=== PATIENT | male | born 1995 | race African-American/Black ===

== ENCOUNTER 2018-02-15 21:35 | Emergency (ER) | payer SELFPAY ==
[~2018-02-15] VITALS: Ht 190.5 cm; Wt 99.8 kg
[2018-02-15 21:41] VITALS: BP 150/103
--- NOTE | 2018-02-15 21:45 | NUR ---
SOB, COUGHING LIGHT PINK SPUTUM X 3 DAYS, FATIGUE, CHILLS, NAD NOTED, VSS, RESP EVEN AND UNLABORED, PT WAS PUT ON MONITOR, ANGELI CONKLIN AT BS.
[2018-02-15 22:35] LABS: BASOPHILS % (AUTO) 0.6 % (0.0-2.0); EOSINOPHILS % (AUTO) 0.9 % (0.0-6.0); HEMATOCRIT 46 % (39-51); HEMOGLOBIN 15.3 g/dL (13.5-17.5); LYMPHOCYTES # (AUTO) 2.7 /CMM (0.8-4.8); LYMPHOCYTES % (AUTO) 41.6 % (20.0-44.0); MEAN CORPUSCULAR HGB CONC 33 g/dl (31.0-36.0); MEAN CORPUSCULAR VOLUME 84 fL (80-96); MONOCYTES # (AUTO) 0.5 /CMM (0.1-1.30); MONOCYTES % (AUTO) 7.8 % (2.0-12.0); NEUTROPHILS # (AUTO) 3.2 /CMM (1.8-8.9); NEUTROPHILS % (AUTO) 49.1 % (43.0-81.0); PLATELET COUNT (AUTO) 225 /CMM (150-450); RDW COEFFICIENT OF VARIATION 14.7 (11.5-15.0); RED BLOOD CELL COUNT(AUTO) 5.52 MIL/uL (4.5-6.0); WHITE BLOOD COUNT (AUTO) 6.6 K/uL (4.3-11.0)
== END 2018-02-15 22:56 | disposition home or self-care (01) ==
LOC: ER 21:37
DX: J20.9 Acute bronchitis, unspecified (principal); Z88.8 Allergy status to other drugs, medicaments and biological substances; Z91.013 Allergy to seafood
CPT/HCPCS: 36415; 71046; 85025-TC; A4606; Z7610

== ENCOUNTER 2018-03-02 17:16 | Emergency (ER) | payer BC ==
[~2018-03-02] VITALS: Ht 182.9 cm; Wt 86.2 kg
[2018-03-02 17:30] VITALS: BP 130/91
--- NOTE | 2018-03-02 17:35 | NUR ---
PRESENTS TO ER STATING "WAS HERE 2 WEEKS AGO FOR BRONCHITIS AND STILL FEEL SOB; ALSO NEEDS TO BE CHECKED OUT FOR CHLAMYDIA- MY GIRL HAS IT AND WAS WITH HER 10 DAYS AGO." PATIENT IS A/OX 4, BREATHING EVEN AND UNLABORED AT THIS TIME. NO DISTRESS, VSS. SAFETY AND COMFORT MEASURES IN PLACE. AWAITING MD ORDERS.
[2018-03-02] MEDS ORDERED: AZITHROMYCIN 250 MG TABLET PO ONE (18:00)
[2018-03-02] MEDS ORDERED: CEFTRIAXONE 500 MG VIAL IM ONE (18:00)
[2018-03-02] MEDS ORDERED: AZITHROMYCIN 250 MG TABLET ONE (18:08)
[2018-03-02] MEDS ORDERED: LIDOCAINE /MPF 1% VIAL 5 ML VIAL ONE (18:09)
[2018-03-02] MEDS ORDERED: CEFTRIAXONE 500 MG VIAL ONE (18:09)
== END 2018-03-02 19:04 | disposition home or self-care (01) ==
LOC: ER 17:27
DX: R05 Cough (principal); Z20.2 Contact with and (suspected) exposure to infections with a predominantly sexual mode of transmission; Z91.013 Allergy to seafood; Z88.8 Allergy status to other drugs, medicaments and biological substances; Z98.890 Other specified postprocedural states
CPT/HCPCS: 96372; 99283; A4606; J0696; J3490; Z7610

== ENCOUNTER 2018-03-04 00:48 | Emergency (ER) | payer BC ==
[~2018-03-04] VITALS: Ht 182.9 cm; Wt 79.4 kg
--- NOTE | 2018-03-04 00:49 | NUR ---
PT A/OX4 C/C SYNCOPAL EPISODE OUTSIDE OF A [employer]. NEG ACUTE DISTRESS. VSS. STABLE CONDITION. SAFETY MEASURES IN PLACE.
[2018-03-04] MEDS ORDERED: ONDANSETRON HCL/PF 4 MG/2 ML VIAL ONE (01:26)
[2018-03-04] MEDS ORDERED: ONDANSETRON HCL/PF 4 MG/2 ML VIAL IVP ONE (01:30)
[2018-03-04] MEDS ORDERED: IV NS 0.9% 1,000 ML BAG IV ONE (01:30)
[2018-03-04] MEDS ORDERED: TDAP [DIPH/PERTUSSIS/TET] 0.5 ML VIAL IM ONE (01:30)
--- NOTE | 2018-03-04 01:33 | NUR ---
PT REFUSED IVP ZOFRAN. RISK AND BENEFITS EXPLAINED X3. PT STRONGLY REFUSED. "SMITHA HAD TOO MANY MEDS TODAY"
[2018-03-04 01:37] LABS: BASOPHILS % (AUTO) 0.5 % (0.0-2.0); EOSINOPHILS % (AUTO) 0.4 % (0.0-6.0); HEMATOCRIT 46 % (39-51); HEMOGLOBIN 15.5 g/dL (13.5-17.5); LYMPHOCYTES # (AUTO) 2.1 /CMM (0.8-4.8); LYMPHOCYTES % (AUTO) 26.6 % (20.0-44.0); MEAN CORPUSCULAR HEMOGLOBIN 28 PG (26.0-33.0); MEAN CORPUSCULAR HGB CONC 34 g/dl (31.0-36.0); MEAN CORPUSCULAR VOLUME 84 fL (80-96); MONOCYTES # (AUTO) 0.6 /CMM (0.1-1.30); NEUTROPHILS # (AUTO) 5.2 /CMM (1.8-8.9); NEUTROPHILS % (AUTO) 64.5 % (43.0-81.0); PLATELET COUNT (AUTO) 211 /CMM (150-450); RDW COEFFICIENT OF VARIATION 14.2 (11.5-15.0); RED BLOOD CELL COUNT(AUTO) 5.53 MIL/uL (4.5-6.0)
--- NOTE | 2018-03-04 01:46 | NUR ---
PT BROUGHT TO CT.
[2018-03-04 01:49] LABS: INR 1.08 (0.87-1.13)
[2018-03-04 01:53] LABS: ALANINE AMINOTRANSFERASE 53 U/L (12-78); ALBUMIN 4.5 g/dL (3.4-5.0); ALKALINE PHOSPHATASE 75 U/L (46-116); ASPARTATE AMINOTRANSFERASE 52 U/L (15-37); BILIRUBIN,DIRECT 0.2 mg/dL (0.0-0.2); BILIRUBIN,TOTAL 1.2 mg/dL (0.2-1.0); CALCIUM, SERUM 9.3 mg/dL (8.5-10.1); CARBON DIOXIDE 25 mmol/L (21-32); CHLORIDE 97 mmol/L (98-107); CREATININE 1.4 mg/dL (0.6-1.3); GLUCOSE 171 mg/dL (74-106); POTASSIUM 3.3 mmol/L (3.5-5.1); SODIUM SERUM 135 mmol/L (136-145); TOTAL PROTEIN, SERUM 8.3 g/dL (6.4-8.2); UREA NITROGEN, BLOOD 14 mg/dL (7-18)
[2018-03-04 01:55] LABS: TROPONIN I < 0.017 ng/mL (0.00-0.056)
--- NOTE | 2018-03-04 02:05 | NUR ---
PT RETURNED FROM CT.
[2018-03-04] MEDS ORDERED: POTASSIUM CHLORIDE 20 MEQ TAB.PRT.SR PO ONE ×2 (02:59→03:00)
--- NOTE | 2018-03-04 04:01 | NUR ---
DR. BANDA AT BEDSIDE SPEAKING TO PT REGARDING RESULTS.
[2018-03-04 04:15] VITALS: BP 120/66
== END 2018-03-04 04:16 | disposition home or self-care (01) ==
LOC: ER 00:50
DX: S00.81XA Abrasion of other part of head, initial encounter (principal); R55 Syncope and collapse; E87.6 Hypokalemia; R73.9 Hyperglycemia, unspecified; F12.10 Cannabis abuse, uncomplicated; R94.5 Abnormal results of liver function studies; Z98.890 Other specified postprocedural states; Z88.8 Allergy status to other drugs, medicaments and biological substances; Z91.013 Allergy to seafood; W18.39XA Other fall on same level, initial encounter; Y93.89 Activity, other specified; Y92.89 Other specified places as the place of occurrence of the external cause; Y99.8 Other external cause status
CPT/HCPCS: 36415; 70450; 70486; 71045; 80048; 80076; 80305; 82962; 84484; 85025; 85378; 85730; 93005; 96360; 99285; A4606; G0480; J7030; Z7610; J2405